=== PATIENT | female | born 1970 | race Caucasian/White ===

== ENCOUNTER → 2017-07-30 | Outpatient (CLI) | payer BC ==
--- NOTE | 2017-07-31 09:21 | MM ---
Reason for exam: screening (asymptomatic). Last mammogram was performed 1 year and 7 months ago. History: Patient has history of endometrial cancer at age 28. Family history of premenopausal breast cancer in aunt. Physical Findings: A clinical breast exam by your physician is recommended on an annual basis and results should be correlated with mammographic findings. MG Screening Mammo w CAD Bilateral CC and MLO view(s) were taken. Prior study comparison: January 04, 2016, bilateral MG screening mammo w CAD. January 13, 2013, bilateral digital screening mammo w/CAD. The breast tissue is extremely dense which could obscure a lesion on mammography. Finding: There are typically benign round, regional and diffuse calcifications in both breasts. Increased group of indeterminate calcifications in the right breast subareolar level. ASSESSMENT: Incomplete: need additional imaging evaluation, BI-RAD 0 RECOMMENDATION: Special view mammogram of the right breast. [facility] will attempt to contact patient to return for supplemental views.
== END ==
LOC: RADMAMWWP 14:00
PROVIDERS: ATTEND Obstetrics & Gynecology
DX: R92.8 Other abnormal and inconclusive findings on diagnostic imaging of breast (principal)
CPT/HCPCS: 77067

== ENCOUNTER → 2017-08-01 | Outpatient (CLI) | payer BC ==
--- NOTE | 2017-08-01 10:45 | MM ---
Reason for exam: additional evaluation requested from abnormal screening. Last mammogram was performed less than 1 month ago. History: Patient has history of endometrial cancer at age 28. Family history of premenopausal breast cancer in aunt. Took hormonal contraceptives beginning at age 18. Physical Findings: Nurse did not find any significant physical abnormalities on exam. MG 3D Work Up W/Cad RT Spot compression CC, spot compression ML, and LM view(s) were taken of the right breast. Prior study comparison: July 30, 2017, bilateral MG screening mammo w CAD. January 04, 2016, bilateral MG screening mammo w CAD. Finding: There are round, grouped/clustered calcifications in the subareolar position of the right breast, layer on lateral view consistent with benign milk of calcium. These results were verbally communicated with the patient and result sheet given to the patient on 08/01/17. ASSESSMENT: Benign, BI-RAD 2 RECOMMENDATION: Return to routine screening mammogram schedule for both breasts.
== END | disposition home or self-care (01) ==
LOC: RADMAMWWP 09:35
PROVIDERS: ATTEND Obstetrics & Gynecology
DX: R92.8 Other abnormal and inconclusive findings on diagnostic imaging of breast (principal); Z80.3 Family history of malignant neoplasm of breast
CPT/HCPCS: 77065; G0279

== ENCOUNTER → 2018-08-13 | Outpatient (CLI) | payer BC ==
[2018-08-13 12:17] LABS: Basophils # (A) 0.1 k/uL (0-0.2); Basophils % (A) 1 %; Eosinophils # (A) 0.3 k/uL (0-0.7); Eosinophils % (A) 5 %; HCT 42.7 % (34.0-46.0); HGB 13.7 gm/dL (11.4-16.0); Lymphocytes % (A) 17 %; MCH 30.3 pg (25.0-35.0); MCHC 32.1 g/dL (31.0-37.0); MCV 94.3 fL (80.0-100.0); Mean Platelet Volume 6.8; Monocytes # (A) 0.3 k/uL (0-1.0); Monocytes % (A) 5 %; Neutrophils # (A) 4.1 k/uL (1.3-7.7); Neutrophils % (A) 71 %; Platelet Count 226 k/uL (150-450); RBC 4.53 m/uL (3.80-5.40); RDW 12.8 % (11.5-15.5); WBC 5.7 k/uL (3.8-10.6)
[2018-08-13 12:23] LABS: ALT 25 U/L (9-52); AST 25 U/L (14-36); Albumin 4.5 g/dL (3.5-5.0); Alkaline Phosphatase 36 U/L (38-126); Anion Gap 7 mmol/L; Blood Urea Nitrogen 14 mg/dL (7-17); Calcium 9.7 mg/dL (8.4-10.2); Carbon Dioxide 28 mmol/L (22-30); Chloride 107 mmol/L (98-107); Cholesterol 198 mg/dL (<200); Glucose 84 mg/dL (74-99); HDL Cholesterol 86 mg/dL (40-60); LDL Cholesterol,Calculated 103 mg/dL (0-99); Potassium 4.4 mmol/L (3.5-5.1); Sodium 142 mmol/L (137-145); Total Bilirubin 0.6 mg/dL (0.2-1.3); Total Protein 6.8 g/dL (6.3-8.2); Triglycerides 45 mg/dL (<150)
[2018-08-13 18:25] LABS: Vitamin D 25 Hydroxy 31.6 ng/mL (30.0-100.0)
[2018-08-13 20:03] LABS: Hemoglobin A1C 4.9 % (4.0-6.0)
--- NOTE | 2018-08-17 08:25 | MM ---
Reason for exam: additional evaluation requested from prior study. Last mammogram was performed 1 year ago. History: Patient has history of endometrial cancer at age 28. Family history of premenopausal breast cancer in aunt. Took hormonal contraceptives beginning at age 18. Physical Findings: Nurse did not find any significant physical abnormalities on exam. MG 3D Diag Mammo W/Cad ANNMARIE Bilateral CC and MLO view(s) were taken. Prior study comparison: August 01, 2017, right breast MG 3d work up w/cad RT. July 30, 2017, bilateral MG screening mammo w CAD. The breast tissue is extremely dense which could obscure a lesion on mammography. Stable benign calcifications. No discrete abnormality. No significant new finding when compared with prior studies. These results were verbally communicated with the patient and result sheet given to the patient on 08/13/18. ASSESSMENT: Benign, BI-RAD 2 RECOMMENDATION: Routine screening mammogram of both breasts in 1 year.
== END | disposition home or self-care (01) ==
LOC: RADMAMWWP 10:12
PROVIDERS: ATTEND Obstetrics & Gynecology
DX: R92.8 Other abnormal and inconclusive findings on diagnostic imaging of breast (principal); E56.9 Vitamin deficiency, unspecified; Z13.220 Encounter for screening for lipoid disorders; Z13.1 Encounter for screening for diabetes mellitus; Z13.228 Encounter for screening for other metabolic disorders
CPT/HCPCS: 36415; 77062; 77066; 80053; 80061; 82306; 82607; 82670; 83001; 83002; 83036; 84439; 84443; 84479; 85025

== ENCOUNTER → 2019-12-23 | Outpatient (CLI) | payer BC ==
--- NOTE | 2019-12-24 10:26 | MM ---
Reason for exam: screening (asymptomatic). Last mammogram was performed 1 year and 4 months ago. History: Patient has history of endometrial cancer at age 28. Family history of premenopausal breast cancer in maternal aunt. Took hormonal contraceptives beginning at age 18. Physical Findings: A clinical breast exam by your physician is recommended on an annual basis and results should be correlated with mammographic findings. MG 3D Screening Mammo W/Cad Bilateral CC, MLO, and XCCL view(s) were taken. Prior study comparison: August 13, 2018, bilateral MG 3d diag mammo w/cad ANNMARIE. August 01, 2017, right breast MG 3d work up w/cad RT. The breast tissue is heterogeneously dense. This may lower the sensitivity of mammography. There are new loosely grouped right central anterior depth calcifications 2cm from nipple. Other bilaterally scattered benign appearing calcifications seen. ASSESSMENT: Incomplete: need additional imaging evaluation, BI-RAD 0 RECOMMENDATION: Special view mammogram of the right breast. [facility] will attempt to contact patient to return for supplemental views.
== END | disposition home or self-care (01) ==
LOC: RADMAMWWP 11:02
PROVIDERS: ATTEND Obstetrics & Gynecology
DX: Z12.31 Encounter for screening mammogram for malignant neoplasm of breast (principal)
CPT/HCPCS: 77063; 77067

== ENCOUNTER → 2020-01-05 | Outpatient (CLI) | payer BC ==
--- NOTE | 2020-01-05 15:06 | MM ---
Reason for exam: additional evaluation requested from abnormal screening. Last mammogram was performed less than 1 month ago. History: Patient has history of endometrial cancer at age 28. Family history of premenopausal breast cancer in maternal cousin. Took hormonal contraceptives beginning at age 18. Physical Findings: Nurse did not find any significant physical abnormalities on exam. MG 3D Work Up W/Cad RT CC with magnification, LM with magnification, and LM view(s) were taken of the right breast. Prior study comparison: December 23, 2019, bilateral MG 3d screening mammo w/cad. August 13, 2018, bilateral MG 3d diag mammo w/cad ANNMARIE. Layering calcifications right breast likely mild of calcium. These results were verbally communicated with the patient and result sheet given to the patient on 01/05/20. ASSESSMENT: Probably benign, BI-RAD 3 RECOMMENDATION: Follow-up diagnostic mammogram of the right breast in 6 months.
== END | disposition home or self-care (01) ==
LOC: RADMAMWWP 14:15
PROVIDERS: ATTEND Obstetrics & Gynecology
DX: R92.8 Other abnormal and inconclusive findings on diagnostic imaging of breast (principal)
CPT/HCPCS: 77061; 77065

== ENCOUNTER → 2020-05-03 | Outpatient (CLI) | payer BC ==
[2020-05-03 08:19] LABS: HCT 41.9 % (34.0-46.0); HGB 13.5 gm/dL (11.4-16.0); MCH 31.3 pg (25.0-35.0); MCHC 32.2 g/dL (31.0-37.0); MCV 97.2 fL (80.0-100.0); Mean Platelet Volume 7.1; Platelet Count 222 k/uL (150-450); RBC 4.32 m/uL (3.80-5.40); RDW 12.6 % (11.5-15.5); WBC 5.6 k/uL (3.8-10.6)
[2020-05-03 11:08] LABS: African American GFR (CKD) 100.3 (60.0-200.0); Albumin 4.4 g/dL (3.80-4.90); Albumin/Globulin Ratio 2.44 (1.60-3.17); Calcium 9.3 mg/dL (8.7-10.3); Chol/HDL Ratio 2.05; Globulin 1.8 g/dL (1.6-3.3); Non-African American GFR(CKD) 86.6 (60.0-200.0); Potassium 4.7 mmol/L (3.5-5.5); Total Bilirubin 0.6 mg/dL (0.3-1.2); Total Protein 6.2 g/dL (6.2-8.2)
[2020-05-03 12:00] LABS: Estradiol 42.7 pg/mL; Luteinizing Hormone 11.1 mIU/mL
[2020-05-03 12:01] LABS: Follicle Stimulating Hormone 41.4 mIU/mL
[2020-05-03 12:52] LABS: T4, Free (Free Thyroxine) 0.9 ng/dL (0.80-1.80)
== END | disposition home or self-care (01) ==
LOC: LABWHC1 07:30
PROVIDERS: ATTEND Obstetrics & Gynecology
DX: Z00.00 Encounter for general adult medical examination without abnormal findings (principal); Z13.220 Encounter for screening for lipoid disorders; Z13.29 Encounter for screening for other suspected endocrine disorder
CPT/HCPCS: 36415; 80053; 80061; 82670; 83001; 83002; 84439; 84443; 84479; 85027

== ENCOUNTER → 2020-05-19 | Outpatient (CLI) | payer BC | END | disposition home or self-care (01) | LOC: LABWHC1 15:14 | PROVIDERS: ATTEND Physician Assistant | DX: R43.2 Parageusia (principal) | CPT/HCPCS: U0003; C9803 ==

== ENCOUNTER → 2020-09-08 | Outpatient (CLI) | payer BC ==
--- NOTE | 2020-09-08 14:21 | MM ---
Reason for exam: follow-up at short interval from prior study. Last mammogram was performed 8 months ago. History: Patient has history of endometrial cancer at age 28. Family history of premenopausal breast cancer in maternal cousin. Took hormonal contraceptives beginning at age 18. Physical Findings: Nurse did not find any significant physical abnormalities on exam. MG 3D Diag Mammo W/Cad RT CC and MLO view(s) were taken of the right breast. Prior study comparison: January 05, 2020, right breast MG 3d work up w/cad RT. December 23, 2019, bilateral MG 3d screening mammo w/cad. The breast tissue is heterogeneously dense. This may lower the sensitivity of mammography. Stable central anterior calcifications compatible with benign milk of calcium. No significant new findings when compared with previous films. These results were verbally communicated with the patient and result sheet given to the patient on 09/08/20. ASSESSMENT: Benign, BI-RAD 2 RECOMMENDATION: Return to routine screening mammogram schedule for both breasts. Back on schedule for December 2020.
== END | disposition home or self-care (01) ==
LOC: RADMAMWWP 12:55
PROVIDERS: ATTEND Obstetrics & Gynecology
DX: R92.8 Other abnormal and inconclusive findings on diagnostic imaging of breast (principal)
CPT/HCPCS: 77061; 77065

== ENCOUNTER → 2021-06-20 | Outpatient (CLI) | payer BC ==
[2021-06-20 10:00] LABS: HCT 40.3 % (34.0-46.0); HGB 13.8 gm/dL (11.4-16.0); MCH 31.9 pg (25.0-35.0); MCHC 34.1 g/dL (31.0-37.0); MCV 93.5 fL (80.0-100.0); Mean Platelet Volume 7.5; Platelet Count 233 k/uL (150-450); RBC 4.31 m/uL (3.80-5.40); RDW 12.5 % (11.5-15.5); WBC 6.1 k/uL (3.8-10.6)
[2021-06-20 16:08] LABS: LDL Cholesterol,Calculated 103.2 mg/dL (0.0-131.0); VLDL Calculation 17.26 mg/dL (5.00-40.00)
--- NOTE | 2021-06-20 23:26 | BD ---
EXAMINATION TYPE: Axial Bone Density DATE OF EXAM: 06/20/2021 COMPARISON: NONE CLINICAL HISTORY: Height: 64 Weight: 141.5 FRAX RISK QUESTIONS: Alcohol (3 or more units per day): no Family History (Parent hip fracture): no Glucocorticoids (More than 3mos): no (Ex: prednisone, prednisolone, methylprednisolone, dexamethasone, and hydrocortisone). History of Fracture in Adulthood: no Secondary Osteoporosis: 1. Type 1 Diabetes: no 2. Hyperthyroidism: no 3. Menopause before 45 yes 4. Malnutrition: no 5. Chronic liver disease: no Rheumatoid Arthritis: no Current Tobacco Use: no RISK FACTORS HISTORY OF: Surgery to Spine/Hip(right/left)/Wrist (right/left): no Family History of Osteoporosis: no Active: yes Diet low in dairy products/other sources of calcium: no Postmenopausal woman: yes Take estrogen and/or progesterone medications: yes How lon months Lost more than 2 inches in height since high school: no Medications: venlafaxine Additional History: EXAM MEASUREMENTS: Bone mineral densitometry was performed using the [employer]. Bone mineral density as measured about the Lumbar spine is: ----- L1-L4(G/cm2): 1.143 T Score Values are as follows: ----- L2: -0.7 ----- L3: 0.1 ----- L4: 0.2 ----- L1-L4: -0.3 Bone mineral density baseline Bone mineral density about the R hip (g/cm2): 0.877 Bone mineral density about the L hip (g/cm2): 0.902 T Score values are as follows: -----R Neck: -1.2 -----L Neck: -1.0 -----R Total: -0.2 -----L Total: -0.1 Bone mineral density has: baseline IMPRESSION: Osteopenia (T Score between -2.5 and -1). There is slightly increased risk of fracture and the patient may be considered for treatment. Re-Screen 2-5 years. NOTE: T-SCORE=SD OF THE YOUNG ADULT MEAN.
--- NOTE | 2021-06-23 09:43 | MM ---
Reason for exam: screening (asymptomatic). Last mammogram was performed 9 months ago. History: Patient is postmenopausal and has history of endometrial cancer at age 28. Family history of premenopausal breast cancer in maternal cousin. Took hormonal contraceptives beginning at age 18. Physical Findings: A clinical breast exam by your physician is recommended on an annual basis and results should be correlated with mammographic findings. MG 3D Screening Mammo W/Cad Bilateral CC and MLO view(s) were taken. Prior study comparison: September 08, 2020, right breast MG 3d diag mammo w/cad RT. January 05, 2020, right breast MG 3d work up w/cad RT. The breast tissue is extremely dense which could obscure a lesion on mammography. Stable benign calcifications. There is no discrete abnormality. No significant changes when compared with prior studies. ASSESSMENT: Benign, BI-RAD 2 RECOMMENDATION: Routine screening mammogram of both breasts in 1 year.
== END | disposition home or self-care (01) ==
LOC: RADMAMWWP 07:59
PROVIDERS: ATTEND Obstetrics & Gynecology
DX: Z12.31 Encounter for screening mammogram for malignant neoplasm of breast (principal); Z13.220 Encounter for screening for lipoid disorders; Z78.0 Asymptomatic menopausal state; Z80.3 Family history of malignant neoplasm of breast; M85.89 Other specified disorders of bone density and structure, multiple sites
CPT/HCPCS: 36415; 77063; 77067; 77080; 80061; 82306; 85027

== ENCOUNTER 2022-07-17 14:36 | Emergency (ER) | payer BC ==
--- NOTE | 2022-07-17 15:03 | ED ---
General Adult HPI - General Source: patient, RN notes reviewed Limitations: no limitations <Karel Darling - Last Filed: 07/17/22 15:01> <Jerica Vail - Last Filed: 07/17/22 23:26> - General Chief complaint: Abdominal Pain Stated complaint: Right side pain Time Seen by Provider: 07/17/22 14:55 - History of Present Illness Initial comments: 52-year-old female resents emergency Department chief complaint of right-sided abdominal pain. Patient states initially started over the weekend states that she was starting have excruciating right-sided pain or need for right rib cage area. Patient states she is having diarrhea and some nausea. Patient states that she started feeling slightly better the next day with still continued to wild ve pain patient's him to go to urgent care though it was too busy and patient went home. She continues to have diarrhea, pain with eating, right-sided pain in which she was sent here for this pain and concerns of possible gallbladder issues. Patient denies reported fever but states that she's felt hot and cold no prior abdominal surgeries no dysuria no hematuria denies any melena hematochezia. Denies chest pain shortness of breath states the pain does not radiate to her shoulder or back. (Karel Darling) - Related Data Previous Rx's Medication Instructions Recorded Amoxic-Pot Clav 875-125Mg 1 tab PO BID 10 Days #20 tab 07/17/22 [Augmentin 875-125] Dicyclomine [Bentyl] 20 mg PO QID PRN #20 tablet 07/17/22 Allergies Allergy/AdvReac Type Severity Reaction Status Date / Time morphine AdvReac Hallucinati Verified 07/17/22 15:20 ons Review of Systems ROS Other: All systems not noted in ROS Statement are negative. <Karel Darling - Last Filed: 07/17/22 15:01> ROS Other: All systems not noted in ROS Statement are negative. <Jerica Vail - Last Filed: 07/17/22 23:26> ROS Statement: Those systems with pertinent positive or pertinent negative responses have been documented in the HPI. General Exam Limitations: no limitations General appearance: alert, in no apparent distress Head exam: Present: atraumatic, normocephalic, normal inspection Eye exam: Present: normal appearance Neck exam: Present: normal inspection, full ROM Respiratory exam: Present: normal lung sounds bilaterally. Absent: respiratory distress, wheezes, rales, rhonchi, stridor Cardiovascular Exam: Present: regular rate, normal rhythm, normal heart sounds. Absent: systolic murmur, diastolic murmur, rubs, gallop, clicks GI/Abdominal exam: Present: soft, tenderness, guarding. Absent: distended, rebound, rigid Neurological exam: Present: alert, oriented X3, CN II-XII intact Psychiatric exam: Present: normal affect, normal mood Skin exam: Present: warm, dry, intact, normal color. Absent: rash <Jerica Vail - Last Filed: 07/17/22 23:26> Course Vital Signs 07/17/22 07/17/22 07/17/22 15:17 19:59 21:29 Temperature 97.6 F 98.2 F Pulse Rate 97 74 76 Respiratory 18 18 18 Rate Blood Pressure 113/82 116/77 121/78 O2 Sat by Pulse 114 H 98 99 Oximetry Medical Decision Making - Lab Data Result diagrams: 07/17/22 15:23 07/17/22 15:23 <Jerica Vail - Last Filed: 07/17/22 23:26> - Medical Decision Making Was pt. sent in by a medical professional or institution? @Sent by PCP Did you speak to anyone other than the patient for history? @No Did you review nursing and triage notes? @Reviewed and agree Were old charts reviewed? @No Differential Diagnosis? @ MDM Differential Abdominal Pain Women: Appendicitis, Cholecystitis, diverticulosis, ischemic bowel, pancreatitis, hepatitis, UTI, gastroenteritis, AAA, incarcerated hernia, bowel obstruction, constipation, inflammatory bowel, hepatitis, peptic ulcer disease, splenic infarction, perforated viscus, vulvitis, ovarian torsion, PID, kidney stone, placenta abruption... This is not meant to be an all-inclusive list EKG interpreted by me (3pts min.)? @ [none] X-rays interpreted by me (1pt min.)? @ [none] CT interpreted by me (1pt min.)? @No U/S interpreted by me (1pt. min.)? @ no What testing was considered but not performed? (CT, X-rays, U/S, labs)? Why? @None What meds were considered but not given? Why? @ [none] Did you discuss the management of the patient with other professionals? @Discussed with my attending Dr. Cannon Did you reconcile home meds? @ [none] Was smoking cessation discussed for >3mins.? @ [none] Was critical care preformed (if so, how long)? @ [none] Were there social determinants of health that impacted care today? How? (Homelessness, low income, unemployed, alcoholism, drug addiction, transportation, low edu. Level, literacy, decrease access to med. care, senior care, rehab)? @No Was there de-escalation of care discussed even if they declined? (Discuss DNR or withdrawal of care, Hospice)? @No What co-morbidities impacted this encounter? (DM, HTN, Smoking, COPD, CAD, Cancer, CVA, Hep., AIDS, mental health diagnosis, sleep apnea, morbid obesity)? @None Was patient admitted / discharged? @Patient presented for right-sided abdominal pain and diarrhea. On physical examination there is tenderness and guarding on the right side. Lab work shows no leukocytosis or anemia. Electrolytes are WNL. Lactic acid is 1.1. Ultrasound shows no evidence of acute process. CT shows colitis involving the cecum, ascending colon, and right half of the transverse colon. Patient will be treated for colitis with Augmentin. She is prescribed Bentyl for discomfort as needed. Patient is educated on these findings and treatment. Educated on signs of worsening symptoms that would prompt reevaluation. Patient is discharged home.Follow-up with PCP. Report back to ER with any new or worsening symptoms. Discussed return parameters and answered all questions. Patient conveyed verbal understanding and agreed to the plan. I discussed this case in detail with my attending Dr. Cannon Undiagnosed new problem with uncertain prognosis? @ [none] Drug Therapy requiring intensive monitoring for toxicity (Heparin, Nitro, Insulin, Cardizem)? @ [none] Were any procedures done? @ [none] Diagnosis/symptom? @Colitis Acute, or Chronic, or Acute on Chronic? @Acute Uncomplicated (without systemic symptoms) or Complicated (systemic symptoms)? @Uncomplicated Side effects of treatment? @Unlikely Exacerbation, Progression, or Severe Exacerbation] @ [no] Poses a threat to life or bodily function? @ Unlikely (Jerica Vail) - Lab Data Lab Results 07/17/22 07/17/22 07/17/22 Range/Units 15:23 15:23 15:23 WBC 10.0 (3.8-10.6) k/uL RBC 4.58 (3.80-5.40) m/uL Hgb 14.4 (11.4-16.0) gm/dL Hct 42.3 (34.0-46.0) % MCV 92.3 (80.0-100.0) fL MCH 31.5 (25.0-35.0) pg MCHC 34.2 (31.0-37.0) g/dL RDW 12.1 (11.5-15.5) % Plt Count 236 (150-450) k/uL MPV 7.7 Neutrophils % 84 % Lymphocytes % 8 % Monocytes % 3 % Eosinophils % 3 % Basophils % 1 % Neutrophils # 8.4 H (1.3-7.7) k/uL Lymphocytes # 0.8 L (1.0-4.8) k/uL Monocytes # 0.3 (0-1.0) k/uL Eosinophils # 0.3 (0-0.7) k/uL Basophils # 0.1 (0-0.2) k/uL Sodium 138 (137-145) mmol/L Potassium 3.7 (3.5-5.1) mmol/L Chloride 104 (98-107) mmol/L Carbon Dioxide 29 (22-30) mmol/L Anion Gap 5 mmol/L BUN 15 (7-17) mg/dL Creatinine 0.81 (0.52-1.04) mg/dL Est GFR (CKD-EPI)AfAm >90 (>60 ml/min/1.73 sqM) Est GFR (CKD-EPI)NonAf 84 (>60 ml/min/1.73 sqM) Glucose 155 H (74-99) mg/dL Plasma Lactic Acid Cole 1.1 (0.7-2.0) mmol/L Calcium 8.7 (8.4-10.2) mg/dL Total Bilirubin 0.6 (0.2-1.3) mg/dL AST 17 (14-36) U/L ALT 14 (4-34) U/L Alkaline Phosphatase 56 (38-126) U/L Total Protein 6.3 (6.3-8.2) g/dL Albumin 3.9 (3.5-5.0) g/dL Lipase 36 (23-300) U/L Disposition <Karel Darling - Last Filed: 07/17/22 15:01> Is patient prescribed a controlled substance at d/c from ED?: No Time of Disposition: 21:15 <Jerica Vail - Last Filed: 07/17/22 23:26> Clinical Impression: Colitis Disposition: HOME SELF-CARE Condition: Good Instructions (If sedation given, give patient instructions): Colitis (ED) Additional Instructions: Follow-up with PCP. Report back to ER with any new or worsening symptoms. Take medication as prescribed. Prescriptions: Amoxic-Pot Clav 875-125Mg [Augmentin 875-125] 1 tab PO BID 10 Days #20 tab Dicyclomine [Bentyl] 20 mg PO QID PRN #20 tablet PRN Reason: Pain Control Referrals: Omar Green MD [Primary Care Provider] - 1-2 days
[2022-07-17 15:20] VITALS: RESP 18
[2022-07-17 15:33] LABS: Basophils # (A) 0.1 k/uL (0-0.2); Basophils % (A) 1 %; Eosinophils # (A) 0.3 k/uL (0-0.7); Eosinophils % (A) 3 %; HCT 42.3 % (34.0-46.0); HGB 14.4 gm/dL (11.4-16.0); Lymphocytes # (A) 0.8 k/uL (1.0-4.8); Lymphocytes % (A) 8 %; MCH 31.5 pg (25.0-35.0); MCHC 34.2 g/dL (31.0-37.0); MCV 92.3 fL (80.0-100.0); Mean Platelet Volume 7.7; Monocytes # (A) 0.3 k/uL (0-1.0); Monocytes % (A) 3 %; Neutrophils # (A) 8.4 k/uL (1.3-7.7); Neutrophils % (A) 84 %; Platelet Count 236 k/uL (150-450); RBC 4.58 m/uL (3.80-5.40); RDW 12.1 % (11.5-15.5)
[2022-07-17 15:42] LABS: ALT 14 U/L (4-34); AST 17 U/L (14-36); African American GFR (CKD) >90 (>60 ml/min/1.73 sqM); Albumin 3.9 g/dL (3.5-5.0); Alkaline Phosphatase 56 U/L (38-126); Anion Gap 5 mmol/L; Blood Urea Nitrogen 15 mg/dL (7-17); Calcium 8.7 mg/dL (8.4-10.2); Carbon Dioxide 29 mmol/L (22-30); Chloride 104 mmol/L (98-107); Glucose 155 mg/dL (74-99); Lipase 36 U/L (23-300); Non-African American GFR(CKD) 84 (>60 ml/min/1.73 sqM); Potassium 3.7 mmol/L (3.5-5.1); Sodium 138 mmol/L (137-145); Total Bilirubin 0.6 mg/dL (0.2-1.3); Total Protein 6.3 g/dL (6.3-8.2)
--- NOTE | 2022-07-17 16:11 | US ---
EXAMINATION TYPE: US gallbladder DATE OF EXAM: 07/17/2022 COMPARISON: NONE CLINICAL HISTORY: pain. TECHNIQUE: Multiple sonographic images of the right upper quadrant are obtained. FINDINGS: EXAM MEASUREMENTS: Liver Length: 14.6 cm Gallbladder Wall: 0.3 cm CBD: 0.5 cm Right Kidney: 10.3 x 4.6 x 5.2 cm RISK CONTROL OFFICER NOTES: Technically difficult due to severe overlying bowel gas, patient ate 2 hours previously. Pancreas: Tail obscured by overlying bowel gas Liver: wnl . Noncirrhotic morphology. No focal lesion. Gallbladder: No stones seen, fundal portion obscured by overlying bowel gas. No pericholecystic flui d or wall thickening. Evidence for sonographic Thorpe's sign: no CBD: wnl Right Kidney: Partially obscured by overlying bowel gas, portions visualized wnl . No hydronephrosis or shadowing calculus. No visualized contour deforming solid mass. IMPRESSION: Limited examination without evidence for acute process.
[2022-07-17 20:00] VITALS: TEMP 98.2
--- NOTE | 2022-07-17 20:50 | CT ---
EXAMINATION TYPE: CT abdomen pelvis w con CT DLP: 661.1 mGycm, Automated exposure control for dose reduction was used. DATE OF EXAM: 07/17/2022 8:35 PM COMPARISON: None CLINICAL INDICATION:Female, 52 years old with history of RLQ and RUQ abd pain; Right side abdomen jeff n and constipation TECHNIQUE: Axial CT of the abdomen and pelvis. Sagittal and coronal reformats were created on a [employer] workstation. Contrast used:100cc mL of Isovue 300 with IV Contrast, Oral contrast used: without Oral Contrast FINDINGS: LOWER CHEST: Unremarkable ABDOMEN LIVER: Scattered subcentimeter probable hepatic cysts. GALLBLADDER AND BILE DUCTS: Unremarkable. PANCREAS: Unremarkable. SPLEEN: Unremarkable. ADRENAL GLANDS: Unremarkable. KIDNEYS AND URETERS: No evidence of hydronephrosis or renal calculus. The ureters are unremarkable. PELVIS BLADDER: Unremarkable REPRODUCTIVE: The uterus is surgically absent. ABDOMEN & PELVIS STOMACH AND BOWEL: Circumferential wall thickening of the right colon most pronounced involving the c ecum with collado measuring up to 8 mm. This extends into the middle half of the transverse colon. The appendix is not definitively visualized. No evidence of perforation. No evidence of obstruction. PERITONEUM: No evidence of pneumoperitoneum or free fluid. VASCULATURE: No evidence of aortic aneurysm. MUSCULOSKELETAL: No acute osseous abnormalities LYMPH NODES: No gross evidence for lymphadenopathy. SOFT TISSUE/ABDOMINAL WALL: Unremarkable IMPRESSION: Colitis involving the cecum, ascending and right half of the transverse colon.
[2022-07-17] MEDS ORDERED: AMOXIC-POT CLAV 875-125MG 1 EACH TAB PO STA (21:18)
[2022-07-17 21:30] VITALS: BP 121/78; PULSE 76
== END 2022-07-17 21:30 | disposition home or self-care (01) ==
LOC: EC 14:36
DX: K52.9 Noninfective gastroenteritis and colitis, unspecified (principal); Z88.5 Allergy status to narcotic agent
CPT/HCPCS: 36415; 80053; 83605; 83690; 85025; 76705; 74177; 99284; Q9967

== ENCOUNTER → 2022-07-23 | Outpatient (CLI) | payer BC ==
--- NOTE | 2022-07-24 07:03 | MM ---
Reason for Exam: Screening (asymptomatic). Last mammogram was performed 1 year(s) and 2 month(s) ago. Patient History: Menarche at age 11. First Full-Term at age 28. Hysterectomy at age 32. Postmenopausal. Endometrial cancer, age 28. Estrogen, starting at age 50. Hormonal Contraceptives, from age 18 until age 26. Maternal cousin had breast cancer, age 39. Maternal aunt (Jazmine) had breast cancer, age 60. Maternal aunt (Lamar) had breast cancer, left, age 65. Risk Values: Tanisha 5 year model risk: 1.3%. NCI Lifetime model risk: 10.5%. Prior Study Comparison: 01/05/2020 Right Diagnostic Mammogram, [facility]. 09/08/2020 Right Diagnostic Mammogram, [facility]. 06/20/2021 Bilateral Screening Mammogram, [facility]. Tissue Density: The breast tissue is extremely dense which could obscure a lesion on mammography. Findings: Analyzed By CAD. There are scattered and loosely grouped benign-appearing tiny round calcifications bilaterally redemonstrated. Focal single dystrophic calcification in the left breast is again seen. There is no suspicious new group of microcalcifications or new suspicious distortion in either breast. Overall Assessment: Benign, BI-RAD 2 Management: Screening Mammogram of both breasts in 1 year. Some advise bilateral breast ultrasound surveillance in patients with background dense tissue. A clinical breast exam by your physician is recommended on an annual basis and results should be correlated with mammographic findings. Electronically signed and approved by: Florin Vega M.D.
== END | disposition home or self-care (01) ==
LOC: RADMAMWWP 10:22
PROVIDERS: ATTEND Obstetrics & Gynecology
DX: Z12.31 Encounter for screening mammogram for malignant neoplasm of breast (principal); Z78.0 Asymptomatic menopausal state; Z80.3 Family history of malignant neoplasm of breast
CPT/HCPCS: 77063; 77067

== ENCOUNTER → 2023-09-24 | Outpatient (CLI) | payer BC ==
--- NOTE | 2023-09-24 16:18 | BD ---
EXAMINATION TYPE: Axial Bone Density DATE OF EXAM: 09/24/2023 CLINICAL HISTORY: 53 years old Female. ICD-10 CODE: M85.88 DISORDER OF BONE DENSITY Height: 64 in Weight: 142 lbs FRAX RISK QUESTIONS: Secondary Osteoporosis: 3. Menopause before 45: partial hysterectomy age 32 RISK FACTORS HISTORY OF: EXAM MEASUREMENTS: Bone mineral densitometry was performed using the [employer] System. Bone mineral density as measured about the Lumbar spine is: ----- L1-L4(G/cm2): 1.204 T Score Values are as follows: ----- L1: 0.1 ----- L2: -0.2 ----- L3: 0.7 ----- L4: 0.1 ----- L1-L4: 0.2 Z Score Values are as follows: ----- L1: 0.7 ----- L2: 0.4 ----- L3: 1.4 ----- L4: 0.8 ----- L1-L4: 0.9 Bone mineral density has: Increased 5.8% since study of: 06/20/2021 Bone mineral density about the R hip (g/cm2): 0.978 Bone mineral density about the L hip (g/cm2): 0.989 T Score values are as follows: -----R Neck: -1.2 -----L Neck: -1.2 -----R Total: -0.2 -----L Total: -0.2 Z Score values are as follows: -----R Neck: -0.2 -----L Neck: -0.2 -----R Total: 0.4 -----L Total: 0.4 Bone mineral density has: Decreased -0.5% since study of: 06/20/2021 FRAX%s: The graph provided illustrates a 5.4% chance for a major osteoporotic fx and a 0.3% chance fo r the hips probability for fx in 10 years time. IMPRESSION: Osteopenia (T Score between -2.5 and -1). There is slightly increased risk of fracture and the patient may be considered for treatment. Re-Screen 2-5 years. NOTE: T-SCORE=SD OF THE YOUNG ADULT MEAN.
--- NOTE | 2023-09-26 10:13 | MM ---
Reason for Exam: Screening (asymptomatic). Last mammogram was performed 1 year(s) and 2 month(s) ago. Patient History: Menarche at age 11. First Full-Term at age 28. Hysterectomy at age 32. Postmenopausal. Patient has history of breast feeding. Estrogen, starting at age 50. Hormonal Contraceptives, from age 18 until age 26. Maternal cousin had breast cancer, age 39. Maternal aunt (Jazmine) had breast cancer, age 60. Maternal aunt (Lamar) had breast cancer, left, age 65. Risk Values: Tanisha 5 year model risk: 1.3%. NCI Lifetime model risk: 10.3%. Prior Study Comparison: 09/08/2020 Right Diagnostic Mammogram, [facility]. 06/20/2021 Bilateral Screening Mammogram, [facility]. 07/23/2022 Bilateral MG 3D screening mammo w/cad, [facility]. Tissue Density: The breasts are heterogeneously dense, which may obscure small masses. Findings: Analyzed By CAD. There is no suspicious group of microcalcifications or new suspicious mass in either breast. Overall Assessment: Benign, BI-RAD 2 Management: Screening Mammogram of both breasts in 1 year. . Patient should continue monthly self-breast exams. A clinical breast exam by your physician is recommended on an annual basis. This exam should not preclude additional follow-up of suspicious palpable abnormalities. Note on Tanisha scores and lifetime risk: 1. A Tanisha score greater than 3% is considered moderate risk. If this is the case, consider specialist referral to assess eligibility for a risk reducing agent. 2. If overall lifetime risk for the development of breast cancer is 20% or higher, the patient may qualify for future screening with alternating mammogram and breast MRI. Electronically signed and approved by: Caio Higginbotham M.D. Radiologis
== END | disposition home or self-care (01) ==
LOC: RADMAMWWP 14:59
PROVIDERS: ATTEND Obstetrics & Gynecology
DX: Z12.31 Encounter for screening mammogram for malignant neoplasm of breast (principal); M85.89 Other specified disorders of bone density and structure, multiple sites; Z78.0 Asymptomatic menopausal state; Z80.3 Family history of malignant neoplasm of breast
CPT/HCPCS: 77063; 77067; 77080